=== PATIENT | male | born 1995 | race Caucasian/White ===

== ENCOUNTER 2021-12-26 12:00 | Emergency (ER) | payer OTHER, SELFPAY ==
[2021-12-26 12:27] VITALS: BP 139/91; PULSE 80; RESP 18; TEMP 35.7; O2SAT 99; BMI 30.1
[2021-12-26 12:56] LABS: COVID19 -Nasal RAPID Negative (Negative)
[2021-12-26 13:09] LABS: Amorphous Sediment Urine 1+; Bacteria Urine None Seen; Culture Indicated Urine Cult Not Indicated; Mucus Urine 1+ (Negative); RBC Urine 1-5/HPF (0-5/HPF); WBC Urine None Seen (0-5/HPF)
--- NOTE | 2021-12-26 15:18 | ED_ITS ---
HPI - Nausea/Vomiting/Diarrhea <Martin Dias PA-C - Last Filed: 12/26/21 20:04> General Chief complaint: Nausea/Vomiting/Diarrhea Stated complaint: Nausea, Diarrhea x 5 days. chest pain Time Seen by Provider: 12/26/21 13:40 Source: patient Mode of arrival: Family Vehicle History of Present Illness HPI Narrative: 26-year-old male with a history of anxiety presents to the ED with 5 days of nausea and vomiting. Patient was seen at an ED 4 days ago for chest pain and discharged with no acute findings. Patient states he tried taking Zofran sublingual yesterday, which made him stop vomiting. However, patient states his nausea is still unresolved. Patient states he was taken off of Lyrica last Sunday by his PCP. Patient is working with his PCP to get back on the Lyrica, given that he is experiencing knee pains again after stopping. Patient denies fever, chills, chest pain, shortness of breath, abdominal pain, dysuria, lightheadedness, dizziness, syncope. Related Data Previous Rx's Medication Instructions Recorded metoclopramide HCl 10 mg tablet 10 mg PO Q6H PRN #14 tab 12/26/21 (Reglan) Allergies Allergy/AdvReac Type Severity Reaction Status Date / Time No Known Drug Allergies Allergy Verified 12/26/21 12:33 Review of Systems <Martin Dias PA-C - Last Filed: 12/26/21 20:04> Review of Systems ROS Unobtainable: All systems reviewed & are unremarkable except as noted in HPI and below Constitutional Constitutional: Denies chills, Denies fatigue, Denies fever(s), Denies frequent falls, Denies lethargy and Denies weakness Eyes Eyes: Denies change in vision, Denies eye discharge, Denies irritation and Denies loss of vision ENT Ears, Nose, Mouth, and Throat: Denies change in voice, Denies dizziness, Denies neck pain, Denies sore throat and Denies throat swelling Cardiovascular Cardiovascular: Denies chest pain, Denies irregular heart rhythm, Denies lightheadedness, Denies palpitations, Denies dyspnea, Denies dyspnea on exertion and Denies orthopnea Respiratory Respiratory: Denies cough, Denies dyspnea, Denies dyspnea on exertion and Denies wheezing Gastrointestinal Gastrointestinal: Denies abdominal pain, Denies change in bowel habits, Denies diarrhea, Reports nausea and Denies vomiting Genitourinary Genitourinary: Denies hematuria, Denies flank pain, Denies urinary incontinence and Denies urinary urgency Musculoskeletal Musculoskeletal: Denies back pain, Denies muscle weakness, Denies neck pain, Denies numbness and Denies tingling Integumentary/Breasts Skin/Breast: Denies pruritus, Denies erythema, Denies rash and Denies wounds Neurologic Neurologic: Denies behavioral changes, Denies confusion, Denies dizziness, Denies frequent falls, Denies loss of vision, Denies numbness, Denies tingling and Denies weakness Psychiatric Psychiatric: Denies anxiety, Denies behavioral changes, Denies confusion, Denies depression, Denies homicidal ideation and Denies suicidal ideation Endocrine Endocrine: Denies fatigue, Denies flushing and Denies palpitations Hematologic/Lymphatic Hematologic/Lymphatic: Denies easy bruising Allergic/Immunologic Allergic/Immunologic: Denies urticaria, Denies throat swelling and Denies wheezing Patient History <Martin Dias PA-C - Last Filed: 12/26/21 20:04> Social History Smoking Status: Never smoker Smoking Status: Never smoker alcohol intake frequency: 0-2 drinks per day Substance Use Type: does not use Exam <Martin Dias PA-C - Last Filed: 12/26/21 20:04> Initial Vital Signs Initial Vital Signs: Vital Signs Temperature 96.2 F L 12/26/21 12:27 Pulse Rate 80 12/26/21 12:27 Respiratory Rate 18 12/26/21 12:27 Blood Pressure 139/91 H 12/26/21 12:27 Pulse Oximetry 99 12/26/21 12:27 Const General: cooperative, healthy appearing and comfortable [facility] Head: normal to inspection Eyes General: Yes appearance normal, both eyes and all related structures Neck Neck: normal visual inspection Resp Effort & Inspection: normal respiratory effort Auscultation: clear to auscultation bilaterally Cardio Rate: regular rate Rhythm: regular rhythm GI Inspection: normal to inspection Other: And is soft, nondistended, nontender to palpation. General: No CVA tenderness Back/Spine/Pelvis Back: normal to inspection Skin General: no rashes or lesions noted Neuro General: patient alert, patient awake and patient oriented x3 Psych Appearance: grossly normal Mental Status: mental status grossly normal <Rogelio Rosales DO - Last Filed: 12/30/21 00:09> Initial Vital Signs Initial Vital Signs: Vital Signs Temperature 96.2 F L 12/26/21 12:27 Pulse Rate 80 12/26/21 12:27 Respiratory Rate 18 12/26/21 12:27 Blood Pressure 139/91 H 12/26/21 12:27 Pulse Oximetry 99 12/26/21 12:27 Course <Martin Dias PA-C - Last Filed: 12/26/21 20:04> Orders Ordered: Discontinued Medications Metoclopramide HCl (Metoclopramide Hcl 10 Mg Tablet) 10 mg PO NOW ONE Stop: 12/26/21 15:27 Last Admin: 12/26/21 15:33 Dose: 10 mg Documented by: ROXANNE Vital Signs Vital signs: Vital Signs - 8 hr 12/26/21 12:27 12/26/21 16:39 Temperature 96.2 F L Pulse Rate 80 72 Respiratory Rate 18 16 Blood Pressure 139/91 H 128/72 Pulse Oximetry 99 99 <Rogelio Rosales DO - Last Filed: 12/30/21 00:09> Orders Ordered: Discontinued Medications Metoclopramide HCl (Metoclopramide Hcl 10 Mg Tablet) 10 mg PO NOW ONE Stop: 12/26/21 15:27 Last Admin: 12/26/21 15:33 Dose: 10 mg Documented by: ROXANNE Vital Signs Vital signs: Vital Signs - 8 hr 12/26/21 12:27 12/26/21 16:39 Temperature 96.2 F L Pulse Rate 80 72 Respiratory Rate 18 16 Blood Pressure 139/91 H 128/72 Pulse Oximetry 99 99 MDM - Nausea/Vomiting/Diarrhea <NERI Watson Last Filed: 12/26/21 20:04> Lab Data Lab results narrative: COVID-19 negative. UA negative for UTI Labs: Lab Results 12/26/21 12/26/21 Range/Units 12:27 12:49 Urine RBC 1-5/hpf (0-5/HPF) Urine WBC None seen (0-5/HPF) Amorphous Sediment 1+ Urine Bacteria None seen (None) Urine Mucus 1+ H (Negative) Ur Culture Indicated? Cult not indicated SARS-CoV-2 (PCR) Negative (Negative) Urine Dip Bedside Urine Glucose Negative Bedside Urine Bilirubin - Negative Bedside Urine Ketone - Negative Urine Specific [place] 1.030 Bedside Urine Occult Blood - Negative Bedside Urine pH 6.0 Bedside Urine Protein +/- 15 Bedside Urine Urobilinogen - Negative Bedside Urine Nitrite - Negative Bedside Urine Leukocytes - Negative Esterase MDM Narrative Medical decision making narrative: 26-year-old male with a history of anxiety presents to the ED with 5 days of nausea and vomiting. Concern for gastroenteritis versus medication withdrawal from Lyrica versus COVID-19 infection Will give Reglan for nausea. COVID-19 test was negative in the ED today. Patient's symptoms improved with Reglan. This charge home with a prescription for Reglan. Patient agrees to follow-up with his PCP. ED return precautions discussed with patient. Patient verbalized understanding. <Rogelio Rosales DO - Last Filed: 12/30/21 00:09> Lab Data Labs: Lab Results 12/26/21 12/26/21 Range/Units 12:27 12:49 Urine RBC 1-5/hpf (0-5/HPF) Urine WBC None seen (0-5/HPF) Amorphous Sediment 1+ Urine Bacteria None seen (None) Urine Mucus 1+ H (Negative) Ur Culture Indicated? Cult not indicated SARS-CoV-2 (PCR) Negative (Negative) Urine Dip Bedside Urine Glucose Negative Bedside Urine Bilirubin - Negative Bedside Urine Ketone - Negative Urine Specific [place] 1.030 Bedside Urine Occult Blood - Negative Bedside Urine pH 6.0 Bedside Urine Protein +/- 15 Bedside Urine Urobilinogen - Negative Bedside Urine Nitrite - Negative Bedside Urine Leukocytes - Negative Esterase Discharge Plan Departure Patient Disposition: Home Clinical Impression: Nausea & vomiting Instructions: DI for Nausea -- Adult Activity Restrictions/Additional Instructions: You were evaluated in the ED today for nausea and vomiting. You were given Reglan in the ED with good symptom relief. You may continue to take the Reglan. Return to the ED if your symptoms worsen, you are uncontrollably vomiting and unable to keep down fluids and solids. Prescriptions: New metoclopramide HCl [Reglan] 10 mg tablet 10 mg PO Q6H PRN (Reason: nausea and vomiting) Qty: 14 0RF <Rogelio Rosales DO - Last Filed: 12/30/21 00:09> Cosign ED Attending Cosignature Attestation: I was immediately available in the department for consultation. This documentation has been reviewed and I agree with assessment and plan. Supervised by Rogelio Rosales, DO
[2021-12-26] MEDS: METOCLOPRAMIDE HCL 10 MG TABLET PO (15:33)
[2021-12-26 16:39] VITALS: BP 128/72; PULSE 72; RESP 16; O2SAT 99
== END 2021-12-26 16:40 | disposition home or self-care (01) ==
PROVIDERS: Emergency Medicine; Emergency Provider Student in an Organized Health Care Education/Training Program
DX: R11.2 Nausea with vomiting, unspecified (principal); Z20.822 Contact with and (suspected) exposure to COVID-19
CPT/HCPCS: 81003; 81015; 87635; 99283; C9803